=== PATIENT | female | born 1940 | race Two or more races ===

== ENCOUNTER 2019-06-28 12:34 | Outpatient (CLI) | payer OTHER | END 2019-06-28 14:36 | disposition home or self-care (01) | LOC: SONOGRAMA 12:34 | DX: M75.111 Incomplete rotator cuff tear or rupture of right shoulder, not specified as traumatic (principal) ==

== ENCOUNTER 2023-05-25 10:49 | Outpatient (CLI) | payer OTHER | END 2023-05-25 10:56 | disposition home or self-care (01) | LOC: MAMO-SONO 10:49 | PROVIDERS: ATTEND Internal Medicine Endocrinology, Diabetes & Metabolism | DX: E04.1 Nontoxic single thyroid nodule (principal); Z12.31 Encounter for screening mammogram for malignant neoplasm of breast; N64.4 Mastodynia ==

== ENCOUNTER 2023-06-25 13:33 | Outpatient (CLI) | payer OTHER | END 2023-06-25 13:40 | disposition home or self-care (01) | LOC: NUCLEAR 13:33 | PROVIDERS: ATTEND Internal Medicine Endocrinology, Diabetes & Metabolism | DX: M81.0 Age-related osteoporosis without current pathological fracture (principal) ==